=== PATIENT | male | born 1995 | race Caucasian/White ===

== ENCOUNTER 2022-09-26 14:41 | Emergency (ER) | payer SELFPAY ==
[~2022-09-26] VITALS: Ht 157.5 cm; Wt 72.6 kg
[2022-09-26 14:45] VITALS: BP 150/80
--- NOTE | 2022-09-26 15:32 | NUR ---
[place] AT BEDSIDE Addendum: 09/26/22 at 1608 by [email or web address] INCIDENT #[id number]
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
[2022-09-26 16:25] VITALS: BP 122/66
--- NOTE | 2022-09-26 16:25 | NUR ---
[place] PD remains at bedside. Patient A&Ox4, GCS 15 at time of discharge.
--- NOTE | 2022-09-26 16:25 | NUR ---
Patient discharged with v/s stable. Written and verbal after care instructions given and explained. Patient verbalized understanding. Ambulatory with steady gait. All questions addressed prior to discharge. Advised to follow up with PMD.
[2022-09-26] MEDS ORDERED: IBUP-1842 PO (16:27)
== END 2022-09-26 16:25 ==
LOC: MED 14:41
DX: S02.82XA Fracture of other specified skull and facial bones, left side, initial encounter for closed fracture (principal); M25.572 Pain in left ankle and joints of left foot; M25.562 Pain in left knee; X58.XXXA Exposure to other specified factors, initial encounter; Y93.89 Activity, other specified; Y92.89 Other specified places as the place of occurrence of the external cause; Y99.8 Other external cause status
CPT/HCPCS: 29515; 73562; 73610; 99284